=== PATIENT | female | born 1990 | race Caucasian/White ===

== ENCOUNTER 2020-05-21 13:30 | Outpatient (REF) | payer OTHER, SELFPAY ==
[2020-05-21 18:09] LABS: HCT 40.7 % (36.0-46.0); HGB 13.7 g/dL (12.0-15.5); Mean Corp. HGB Concentration 33.7 g/dL (32.0-36.0); Mean Corpuscular Hemoglobin 27.8 pg (27.0-33.0); Mean Corpuscular Volume 82.7 fL (80-95); Mean Platelet Volume 11.4 fL (8.0-11.0); Platelet Count 233 x1000/uL (130-400); RBC 4.92 m/cumm (4.00-5.20); RBC Distribution Width 12.8 % (11.7-14.6); White Blood Cell Count 5.29 k/cumm (4.4-10.8)
[2020-05-21 18:37] LABS: Anion Gap 9.1 mmol/L (3-11); BUN 14 mg/dL (7-18); CO2 25.9 mmol/L (21.0-32.0); CREATININE 0.45 mg/dL (0.55-1.02); Calcium 9.3 mg/dL (8.5-10.1); Chloride 104 mmol/L (98-107); Glucose 90 mg/dL (74-106); Potassium 4.3 mmol/L (3.5-5.1); Sodium 139 mmol/L (136-145)
[2020-05-21 18:46] LABS: TSH (W/Ref FT4) < 0.01 uIU/mL (0.36-3.74)
[2020-05-21 19:07] LABS: FREE T4 2.86 ng/dL (0.76-1.46)
== END 2020-05-21 13:50 ==
LOC: NCHCN 13:30
PROVIDERS: PCP Nurse Practitioner Family; Visit Provider Nurse Practitioner Family
DX: N92.6 Irregular menstruation, unspecified (principal)
CPT/HCPCS: 80048; 85027; 84439; 84443

== ENCOUNTER 2020-06-25 09:54 | Outpatient (REF) | payer OTHER, SELFPAY ==
[2020-06-25 20:29] LABS: Abs Immature Grans 0.01 10^3/uL (0.0-0.06); Absolute Basophil Count 0.05 10^3/uL (0.0-0.2); Absolute Eosinophil Count 0.12 10^3/uL (0.0-0.7); Absolute Lymphocyte Count 1.45 10^3/uL (1.2-3.4); Absolute Monocyte Count 0.64 10^3/uL (0.1-0.8); Absolute Neutrophil Count 4.97 10^3/uL (1.2-6.7); Basophils % 0.7; Eosinophils % 1.7; HCT 41.9 % (36.0-46.0); Immature Grans % 0.1; MCHC 33.4 % (32.0-36.0); MCV 83.8 fL (80-95); MPV 11.5 fL (8.0-11.0); Monocytes % 8.8; Neutrophils % 68.7; Nucleated RBC 0 %; Platelet Count 236 10^3/uL (130-400); RDW 13.3 % (11.7-14.6); RDW-SD 40.6 fL; WBC 7.24 10^3/uL (4.4-10.8)
[2020-06-25 20:58] LABS: Anion Gap 11.6 mmol/L (3-11); BUN 12 mg/dL (7-18); CO2 21.4 mmol/L (21.0-32.0); CREATININE 0.55 mg/dL (0.55-1.02); Chloride 106 mmol/L (98-107); Glucose 86 mg/dL (74-106); Potassium 4.3 mmol/L (3.5-5.1); Sodium 139 mmol/L (136-145); TSH (W/Ref FT4) < 0.01 uIU/mL (0.36-3.74)
[2020-06-25 21:18] LABS: FREE T4 1.11 ng/dL (0.76-1.46)
== END 2020-06-25 10:14 ==
LOC: NCHCN 09:54
PROVIDERS: PCP Nurse Practitioner Family; Visit Provider Nurse Practitioner Family
DX: N92.6 Irregular menstruation, unspecified (principal); E05.90 Thyrotoxicosis, unspecified without thyrotoxic crisis or storm
CPT/HCPCS: 80048; 84439; 84443; 85025

== ENCOUNTER 2020-09-03 19:19 | Outpatient (REF) | payer OTHER, SELFPAY ==
[2020-09-06 15:14] LABS: Chlamydia Result Negative (Negative); GC Result Negative (Negative)
== END 2020-09-03 19:39 ==
LOC: LBN 19:19
PROVIDERS: PCP Nurse Practitioner Family; Visit Provider Obstetrics & Gynecology
DX: Z30.9 Encounter for contraceptive management, unspecified (principal)
CPT/HCPCS: 87491; 87591

== ENCOUNTER 2020-09-24 03:25 | Outpatient (CLI) | payer OTHER, SELFPAY ==
--- NOTE | 2020-09-24 06:45 | DI.US_ITS ---
EXAM: US PELVIS TRANSVAGINAL CLINICAL HISTORY: check position of IUD, patient with pain,T83.9XXA. TECHNIQUE: Transabdominal and transvaginal pelvic ultrasound was performed using standard protocol. COMPARISON: No exams were available for comparison FINDINGS: KIDNEYS: Kidneys are symmetric in size. No evidence of renal calculi. No evidence of hydronephrosis. No renal mass or cyst identified. UTERUS: Position: Anteverted. Size: 7.8 long by 3.4 AP by 4.9 transverse cm Endometrium: 0.7 cm. Normal for patient's menstrual status. An IUD is seen in good position within th e endometrial canal. Myometrium: Unremarkable. Cervix: Unremarkable. OVARIES: Right: 4.2 x 1.9 x 1.4 cm Cyst or mass: 2 x 0.9 x 1.6 cm simple cyst. Left: 3.9 x 2.3 x 3.0 cm Cyst or mass: Several simple cysts. The largest measures 2.9 x 2 x 2.2 cm. Note is made of a daught er simple cyst. DOPPLER: Color: Symmetric and uniform flow to both ovaries. No hyperemia. Duplex: Normal ovarian arterial waveforms visualized. CUL-DE-SAC: Free fluid: None. Other: None. IMPRESSION: 1. Normal sonographic appearance of the kidneys. 2. Normal-appearing uterus with endometrial stripe within normal limits. IUD is in good position. 3. Unremarkable bilateral ovaries. DATA REPOSITORY:
== END 2020-09-24 03:45 ==
PROVIDERS: PCP Family Medicine; Visit Provider Obstetrics & Gynecology
DX: T83.84XA Pain due to genitourinary prosthetic devices, implants and grafts, initial encounter (principal)
CPT/HCPCS: 76830; 76856

== ENCOUNTER 2021-04-22 16:50 | Outpatient (REF) | payer OTHER, SELFPAY ==
--- OUTSIDE RECORDS SUMMARY | 2021-04-22 16:55 | XMS_ITS ---
:1990 Author Care Team Providers Name Role Phone CHELSEA FOREMAN MD ([facility]) Primary Care Provider [phone] FAUSTO SU MD Orthopedic Surgeon [phone] Allergies Code Code System Name Reaction Severity Status Onset NKDA ? Notes: 04/21/2020 Medications Name Status Start Date Stop Date ? ? ibuprofen 800 mg tablet Active ? Not avai lable Take 1 tablet 3 times a day by oral route. Notes: 04/21/2020 Problems No Known Problems Procedures Date Name Performed by ? ? Reconstruction of Anterior Cruciate Liga ment of Knee Joint Information not available Notes: left--?201406/27/2019 XR, Clavicle [facility] [address] [place] [address] (Work Place) 06/27/2019 CT, Chest, W/o Contrast [facility] ([facility]) [address] [place] [address] (Work Place) Results Lab Results None recorded. Past Encounters None recorded. Social History None recorded. Vaccine List Vaccine Type COVID-19, mRNA, LNP-S, PF, 100 mcg/0.5 m L dose 02/22/2021?100 mcg 03/21/2021?0.5 mL Plan of Care Reminders Provider Appointments None ? ? recorded. Lab None ? ? recorded. Referral None ? ? recorded. Procedures None ? ? recorded. Surgeries None ? ? recorded. Imaging None ? ? recorded. Vitals Weight Blood Pressure 96.62 kg 136/84 mm[Hg]
--- OUTSIDE RECORDS SUMMARY | 2021-04-22 16:55 | XMS_ITS ---
:1990 External Reference #:[id number] Author Care Team Providers Name Role Phone Carleneedilma Primary Care Provider Unavailable Allergies None recorded. Medications Name Status Start Date Stop Date ? ? amoxicillin 875 mg-potassium Active ? Not available clavulanate 125 mg tablet atenolol Active 05/21/2020 Not available atenolol 25 mg tablet Active ? Not availa ble chlorhexidine gluconate 0.12 % Active ? N ot available mouthwash ibuprofen 800 mg tablet Active ? Not avai lable methimazole 10 mg tablet Active ? Not yohana ilable Nexplanon Active 01/18/2018 Not available Problems Name Status Onset Date Source ? Hyperthyroidism Active 07/22/2020 ? Menorrhagia Active 10/14/2020 ? Irregular Periods Active 10/14/2020 ? Sleep Pattern Disturbance Active 10/14/2020 ? Procedures Date Name Performed by ? 02/20/2014 Knee Surgery Information not avai lable Notes: torn ACL reconstruct'n 06/29/2020 US, Thyroid Information not avai lable 06/29/2020 US, Neck, Soft Tissue Information not av ailable Results Lab Results None recorded. Past Encounters 10/05/2020 Sleep Pattern Disturbance; Irregular Per iods; Hyperthyroidism Afshan Thompson, ND: [address] [place] [address], Ph. [phone] 08/12/2020 Irregular Periods; Hyperthyroidism; Diet law[employer] Afshan Thompson, ND: [address] [place] [address], Ph. [phone] 07/14/2020 Middle Insomnia; Anxiety; Hyperthyroidis m Afshan Thompson, ND: [address] [place] [address], Ph. 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 [phone] Social History Tobacco Smoking Status Former Smoker Vaccine List None recorded. Plan of Care Patient Instructions STILL NEED MTHFR TESTING- [address] and Me online, or can get blood test through Connor Buck MD Supplements: 1. reduce melatonin to 3 mg for a few ni ghts if still wake at noght then reduce to another 1/2 pill 1.5mg/noght 2, 2 cycles of menses without DIM- but D IM is helpful in dispution the uterine lining from building up and causing more bleeding 3. gi fortify- powder take megaspore wit h it- 1/2 scoop first thing am and last thing pm- after 3/4 days full scoop 2xday drink additional 4 finish b5 and b complex then take b co mplex only 1 cap/day 5. purepaleo unflavored- put in shakes Shakes in AM- vary the shake- berries an d vanilla one day chocolate oatmeal and apples cinnamon- PREventative-for immune support zinc picolinate 1 cap/day vitamin A- mulsion 1 drop day paulette with 1-2 drops D-mulsion Vitamin C buffered 1 cap 3xday 1. Seed Cycling ? gentle way to bal ance hormones through the use of different seeds at different phases of menstrual cycle. This can take up to three months to show benefit. Day 1 of menses (first day of bleeding) until Day 15 ? 2 TBS of ground flax seeds or ground pumpkin seeds daily Day 16 until Day 1 ? 2 TBS of ground sun flower seeds or ground sesame seeds * Best to grind the seeds yourself inste ad of purchasing them in the ground form. You can use a pocket grinder operator to do so. 2. DIM avail 1 cap 2xday 3. Make appt with [facility] or DR. Brian Bragg for help with BC plans- 4. 1/2 grapefruit/day 5. Further food allergy testing? IgE, IG a, IGE 1. Melatonin 3 mg every night for 5 night and then 2 tab for 5 nights- 2.stress- b complex 1 cap/day 3. PLP- B5 500mg /day 4. retest- B5 and ferritin in 2months 5. mthfr 1298?? [place] didnt run 6. ther-biotic caps- 1 cap 2xday- switch back to aleksey spores when finished- 1. iodine test outside labtest-out of pocket expense- not through insurance 2. [place] hormone profile- outside lab te st 325$ not through insurance 3. thyroid calming herbal extract- 5-10 drops /day in 1-2 oz water- we may double this after our next visit depending on your symptoms etc 4. start looking at Autoimmune diet- we can discuss next visit when we review labs- BE WELL HYDRATED day before blood draw and morning of- THEY WILL NEED A FEW TUBES 5. STOP ALL DAIRY-keep a log of what you are eating/feeling -even on days you still may slip dairy in- or especially on those days :) track stool type when it happens- BM1-7 on [employer] STOOL CHART can google this Reminders Provider Appointments None recorded. ? ? Lab None recorded. ? ? Referral None recorded. ? ? Procedures None recorded. ? ? Surgeries None recorded. ? ? Imaging None recorded. ? ? Vitals 10/05/2020 03:00PM ESTABLISHED PATIENT 43 Height Weight BMI Blood Pressure 5 ft 9 in 206 lbs 30.4 kg/m2 108/68 mm[Hg] 08/12/2020 08:45AM ESTABLISHED PATIENT 45 Height 5 ft 9 in 06/29/2020 09:45AM NEW PATIENT 90 Height Weight BMI Blood Pressure 5 ft 9 in 206 lbs 16 oz 30.6 kg/m2 104/68 mm[Hg]
[2021-04-25 10:41] LABS: Varicella IgG Antibody Positive (See Note)
== END 2021-04-22 16:51 | disposition home or self-care (01) ==
LOC: NCHCN 16:50
PROVIDERS: PCP Family Medicine; Visit Provider Nurse Practitioner Family
DX: Z01.84 Encounter for antibody response examination (principal); Z11.59 Encounter for screening for other viral diseases
CPT/HCPCS: 86787

== ENCOUNTER 2021-05-06 15:07 | Outpatient (REF) | payer OTHER, SELFPAY ==
--- NOTE | 2021-05-06 15:00 | PAPFT_PTH ---
PATIENT: Nancy Joy LOC: [facility] U#:[id number] AGE/SX: 30/F ROOM: RE05/06/[address]: FAISAL Alonzo : 1990 BED: DIS: 05/06/2021 SPEC #: [id number] RECD: 05/06/21 16:29 STATUS: LEONEL REQ #: [id number] ALISHA: 05/06/21 15:[address]: Hannah Dougherty DEPT: [facility] Cytology RECD BY: Lisa Cruz ENTERED: 05/06/21 16:30 SP TYPE: PAPFT OTHR DR: Martin Hdz Tissues: 1 - CX/ENDOCX FOR PAP SMEARS Procedures: PAP THIN PREP/[facility] Screening HPV DNA PROBE Comments: [id number]
== END 2021-05-06 15:08 | disposition home or self-care (01) ==
LOC: LBN 15:07
PROVIDERS: PCP Family Medicine; Visit Provider Nurse Practitioner Family
DX: Z12.4 Encounter for screening for malignant neoplasm of cervix (principal); Z11.51 Encounter for screening for human papillomavirus (HPV); Z01.419 Encounter for gynecological examination (general) (routine) without abnormal findings
CPT/HCPCS: 88142; 87624

== ENCOUNTER 2021-05-26 16:38 | Outpatient (REF) | payer OTHER, SELFPAY ==
[2021-05-30 14:05] LABS: Chlamydia Result Negative (Negative); GC Result Negative (Negative)
== END 2021-05-26 16:39 | disposition home or self-care (01) ==
LOC: NCHCN 16:38
PROVIDERS: PCP Family Medicine; Visit Provider Nurse Practitioner Family
DX: Z30.431 Encounter for routine checking of intrauterine contraceptive device (principal)
CPT/HCPCS: 87491; 87591

== ENCOUNTER 2022-04-28 14:27 | Outpatient (REF) | payer OTHER, SELFPAY ==
[2022-05-01 14:36] LABS: Chlamydia Result Negative (Negative); GC Result Negative (Negative)
== END 2022-04-28 14:28 | disposition home or self-care (01) ==
LOC: LBN 14:27
PROVIDERS: PCP Family Medicine; Visit Provider Obstetrics & Gynecology
DX: N76.0 Acute vaginitis; Z11.3 Encounter for screening for infections with a predominantly sexual mode of transmission
CPT/HCPCS: 87491; 87591; 87480; 87510; 87660

== ENCOUNTER 2023-03-27 10:44 | Outpatient (REF) | payer OTHER, SELFPAY | END 2023-03-27 10:45 | disposition home or self-care (01) | LOC: LBN 10:44 | PROVIDERS: PCP Family Medicine; Visit Provider Obstetrics & Gynecology | DX: N76.0 Acute vaginitis (principal) | CPT/HCPCS: 87480; 87510; 87660 ==

== ENCOUNTER 2024-07-03 10:13 | Outpatient (REF) | payer OTHER, SELFPAY ==
[2024-07-04 10:59] LABS: Chlamydia Result Negative (Negative); GC Result Negative (Negative)
== END 2024-07-03 10:14 | disposition home or self-care (01) ==
LOC: LBN 10:13
PROVIDERS: PCP Family Medicine; Visit Provider Obstetrics & Gynecology
DX: Z11.3 Encounter for screening for infections with a predominantly sexual mode of transmission (principal)
CPT/HCPCS: 87491; 87591

== ENCOUNTER 2024-08-16 12:32 | Outpatient (REF) | payer OTHER, SELFPAY ==
[2024-08-18 10:00] LABS: HBs Antibody, Quant 24.5 mIU/mL (See Note); Hepatitis B Surface Ab Positive (See Note)
[2024-08-18 10:15] LABS: Hepatitis B Surface Ag Negative (Negative)
[2024-08-18 10:50] LABS: HIV-1/2 Ag & Ab Screen Negative (Negative)
[2024-08-18 11:01] LABS: Syphilis Serology (RPR) Negative (Negative)
[2024-08-18 11:15] LABS: Hepatitis C Ab w Rflx HCV PCR Negative (Negative)
[2024-08-19 16:08] LABS: Bacterial Vaginosis (BV) Negative (Negative); Candida glabrata Negative (Negative); Candida species group Positive (Negative); Chlamydia Result Negative (Negative); GC Result Negative (Negative); Trichomonas vaginalis Negative (Negative)
== END 2024-08-16 12:33 | disposition home or self-care (01) ==
LOC: LBN 12:32
PROVIDERS: Visit Provider Family Medicine
DX: Z11.3 Encounter for screening for infections with a predominantly sexual mode of transmission (principal)
CPT/HCPCS: 81513; 86706; 86803; 87340; 87389; 87481; 87491; 87591; 87661; 86592

== ENCOUNTER 2025-07-28 13:35 | Outpatient (REF) | payer OTHER, SELFPAY ==
--- NOTE | 2025-07-28 13:20 | PAPFT_PTH ---
PATIENT: Nancy Joy LOC: [facility] U#:[id number] AGE/SX: 35/F ROOM: RE07/28/[address]: Carla Munguia DO : 1990 BED: DIS: 07/28/2025 SPEC #: [id number] RECD: 07/28/25 17:15 STATUS: LEONEL REQ #: [id number] ALISHA: 07/28/25 13:[address]: Carla Munguia DEPT: [facility] Cytology RECD BY: Lisa Cruz ENTERED: 07/28/25 17:15 SP TYPE: PAPFT OTHR DR: Unknown,Unknown Tissues: 1 - CX/ENDOCX FOR PAP SMEARS Procedures: PAP THIN PREP/[facility] Screening HPV DNA PROBE Comments: [id number] (HPV 16 & 18/45)
== END 2025-07-28 13:36 | disposition home or self-care (01) ==
LOC: LBN 13:35
PROVIDERS: Visit Provider Obstetrics & Gynecology
DX: Z12.4 Encounter for screening for malignant neoplasm of cervix (principal)
CPT/HCPCS: 88142; 87624